=== PATIENT | female | born 1950 | race Caucasian/White ===

== ENCOUNTER 2019-01-02 09:12 | Day surgery (SDC) | payer MEDICARE, BC ==
[~2019-01-02] VITALS: Ht 165.1 cm; Wt 48.8 kg
[~2019-01-02 09:12] MED LIST: ASPIRIN 32325 MG/TAB PO; ASPIRIN 81M81 MG/TA2 PO; CRESTOR5 MG PO; DIURETIC; DYAZIDE 25 MG-31 CAP PO; DYRENIUM 50MG C50 MG PO; MULTIVITAMIN FO1 CAP PO; VIT B 12; VIT C; VIT D; VITAMIN B121000 MC2 SL; VITAMIN C500 MG PO
[2019-01-02 09:56] VITALS: BP 104/95; PULSE 98; TEMP 98.1
[2019-01-02] MEDS ORDERED: ASPIRIN 81M81 MG/TA2 PO (09:58)
[2019-01-02 10:00] VITALS: BP 108/66; PULSE 73
[2019-01-02] MEDS ORDERED: PROBIOTIC FORMU1 CAP PO (10:00)
[2019-01-02] MEDS ORDERED: LEXAPRO 5MG5 MG PO (10:01)
[2019-01-02 10:45] VITALS: BP 103/68; PULSE 74; TEMP 97
--- NOTE | 2019-01-02 10:45 | NUR ---
PT AMBULATES FROM [facility] TO [facility] WITH ASSISTANCE. PT DENIES C/O. VITAL SIGNS STABLE. CALL LIGHT WITHIN REACH. PT DRINKING COFFEE AND TOAST. PT IN [facility].
--- NOTE | 2019-01-02 11:00 | NUR ---
PT CONTINUES TO DENY C/O. VITAL SIGNS STABLE. CALL LIGHT NEXT TO PT. PT EATING TOAST AND DRINKING COFFEE. PT IN [facility] WITH PT.
--- NOTE | 2019-01-02 11:10 | NUR ---
DISCHARGE INSTRUCTIONS REVIEWED WITH PT AND PT . BOTH VERBALIZES UNDERSTANDING. IV DISCONTINUED. CATHETER INTACT. NO REDNESS OR SWELLING. DRESSING DRY AND INTACT. PT AMBULATES TO CAR WITH [facility]OWER [facility] WITH ASSISTANCE.
[2019-01-02 13:50] VITALS: BP 95/60; PULSE 74
== END 2019-01-02 11:15 | disposition home or self-care (01) ==
LOC: SDCO 09:12
DX: Z12.11 Encounter for screening for malignant neoplasm of colon (principal); D12.5 Benign neoplasm of sigmoid colon; Z86.010 Personal history of colon polyps; Z88.2 Allergy status to sulfonamides; I10 Essential (primary) hypertension; E78.00 Pure hypercholesterolemia, unspecified
CPT/HCPCS: J2250; J3010; J7030

== ENCOUNTER → 2019-07-27 | Outpatient (CLI) | payer MEDICARE, BC ==
[~2019-07-27] MED LIST changes: +LEXAPRO 5MG5 MG PO; +PROBIOTIC FORMU1 CAP PO
== END ==
LOC: MC.RAD 14:38
DX: Z12.31 Encounter for screening mammogram for malignant neoplasm of breast (principal)